=== PATIENT | female | born 1965 | race Two or more races ===

== ENCOUNTER 2024-12-15 19:34 | Emergency (ER) | payer MEDICARE, MEDICAID, SELFPAY ==
[2024-12-15 20:30] VITALS: BP 126/77; PULSE 109; RESP 19; TEMP 37.1; O2SAT 97
--- NOTE | 2024-12-15 20:56 | XR_ITS ---
Examination:Right hip AP, lateral, AP pelvis 3 views Technique: Hip AP lateral, AP pelvis, 3 views Exam date and time:December 15, 2024, 2058 hrs. Indications: Patient fell today with into the right on the right hip pain. Findings: No right hip fracture or dislocation Greater trochanteric bursitis right hip The density overlies left hip. Left hip bones of the pelvis intact Impression: No hip or pelvic fracture..
--- NOTE | 2024-12-15 20:56 | XR_ITS ---
Examination: CT bilateral hips, without contrast. 2-D sagittal reconstructions. 2-D coronal reconstructions. 3-D reconstructions. Date and time of exam:December 15, 2024, 2127 hrs. Indications: Patient fell 9 days ago with injury to both hips, bilateral hip pain CTDI: vol (mGy):4.85 DLP: (mGycm):189 Technique: Multiple 1.25 mm axial sections of the bilateral hips without intravenous contrast have been obtained. 2-D sagittal and coronal reconstructions have been obtained. 3-D reconstructions have been obtained. Low dose protocols were performed. One or more of the following dose reduction techniques were used; automated exposure control, adjustment of the mA and/or KV according to patient size, use of iterative reconstruction technique. Findings: Sacral segments intact Iliac bones acetabular regions intact Anterior rami demonstrate no fractures No right or left hip fracture or dislocation Greater trochanteric bursitis right hip No pelvic hematoma Bladder intact Impression: No acute hip or pelvic fracture.
--- NOTE | 2024-12-15 21:20 | XR_ITS ---
Examination: CT lumbar spine, without contrast. 2-D sagittal reconstructions. 2-D coronal reconstructions. 3-D reconstructions. Date and time of exam:December 15, 2024, 2130 hrs. Indications: Patient fell 9 days ago with injury to lower back, lower back pain. CTDI: vol (mGy):14.4 DLP: (mGycm): 1. Technique: Multiple 1.25 mm axial sections of the lumbar spine without intravenous contrast have been obtained. 2-D sagittal and coronal reconstructions have been obtained. 3-D reconstructions have been obtained. Low dose protocols were performed. One or more of the following dose reduction techniques were used; automated exposure control, adjustment of the mA and/or KV according to patient size, use of iterative reconstruction technique. Findings: Adequate alignment lumbar vertebral bodies on the lateral view No lumbar vertebral body compression fracture Lumbar pedicles, laminae, transverse and posterior spinous processes appear intact L5-S1 4 mm central lumbar disc bulge contiguous with the right and left S1 nerve roots and extending to the left foramen producing mild left L5 ganglionic compression More cephalad levels unremarkable Impression: No acute lumbar fracture L5-S1 4 mm central lumbar disc bulge contiguous with the right and left S1 nerve roots and extending to the left foramen producing mild left L5 ganglionic compression MRI lumbar spine without contrast follow-up, elective, would best assess acquired soft tissue spinal stenosis
[2024-12-15] MEDS: FAMOTIDINE 20 MG TABLET 40 MG PO (22:39)
[2024-12-15] MEDS: MG HYD/AL HYD/SIME (Maalox Reg) SUSP 30 ML UDC PO (22:40)
[2024-12-15] MEDS: KETOROLAC INJ 60 MG/2 ML VIAL IM (22:41)
--- NOTE | 2024-12-15 23:01 | PD.EDHIP ---
Lower Extremity Injury RME/HPI General Chief Complaint: Hip Injury/Pain Stated Complaint: RIGHT HIP PAIN RADIATING TO LEG Time Seen by Provider: 12/15/24 20:55 Arrival date/time: 12/15/24 19:34 59F with no significant PMH presents to ED with 1 week of gradually worsening R hip pain after patient fell. Pain goes down to toes. Initially no pain. Limitations: no limitations Related Data Home Medications ?Medication ?Instructions ?Recorded ?Confirmed HYDROCODONE BIT/ACETAMINOPHEN 1 tab PO Q4-6HRPRN PRN P ##0 03/05/13 (HYDROCODON-ACETAMINOPHN 10-300) Allergies Allergy/AdvReac Type Severity Reaction Status Date / Time No Known Allergies Allergy Unverified 12/15/24 20:58 Review of Systems Review of Systems Systems Reviewed: All systems reviewed, normal except as documented Constitutional Constitutional: Reports system reviewed and no additional complaints, except as documented, Denies fever(s) and Denies headache(s) ENT Ears, Nose, Mouth, and Throat: Denies disequilibrium and Denies headache(s) Cardiovascular Cardiovascular: Reports system reviewed and no additional complaints, except as documented, Denies chest pain and Denies dyspnea Respiratory Respiratory: Reports system reviewed and no additional complaints, except as documented, Denies cough and Denies dyspnea Gastrointestinal Gastrointestinal: Reports system reviewed and no additional complaints, except as documented, Denies abdominal pain, Denies nausea and Denies vomiting Musculoskeletal Musculoskeletal: Reports as per HPI, Reports arthralgias and Reports radiating pain into limb Neurologic Neurologic: Reports system reviewed and no additional complaints, except as documented, Denies confusion, Denies disequilibrium and Denies headache(s) Psychiatric Psychiatric: Denies confusion Past Medical History Social History SMOKING STATUS: Current every day smoker ED Exam General Limitations: Present no limitations General appearance: Present alert and in no apparent distress Head Head exam: Present atraumatic Neck Neck exam: Present normal inspection, full ROM and trachea midline Chest Chest inspection: Present normal inspection and symmetric chest wall rise Expanded Lower Extremity Exam Hip/Pelvis exam: Present tenderness (R) Psychiatric Psychiatric exam: Present normal affect and normal mood Skin Skin exam: Present warm, dry, intact and normal color Course Quality Measures none Orders Category Date Time Status CT hip BI wo con Stat Exams 12/15/24 20:[address] lumbar spine wo con Stat Exams 12/15/24 21:20 Completed XR hip RT w pelvis 2-3V Stat Exams 12/15/24 20:56 Completed Famotidine [Pepcid] Med 12/15/24 22:11 Discontinued 40 mg PO X1 ONE Ketorolac Inj [Toradol Inj] Med 12/15/24 22:11 Discontinued 60 mg IM X1 ONE mg Hyd/Al Hyd/Calvin Susp [Maalox Susp] Med 12/15/24 22:11 Discontinued 30 ml PO X1 ONE oxyCODONE/APAP 5/325 [Percocet 5/325] Med 12/15/24 20:56 Discontinued 1 tab PO X1 ONE Vital Signs Vital signs: Vital Signs Temperature 98.7 F 12/15/24 20:30 Pulse Rate 109 H 12/15/24 20:30 Respiratory Rate 19 12/15/24 20:30 Blood Pressure 126/77 12/15/24 20:30 Pulse Oximetry (%) 97 12/15/24 20:30 Oxygen Delivery Method Room Air 12/15/24 20:30 O2 at 97% on RA and WNLs Extremity Injury, Lower MDM Narrative MDM Narrative:: 59F with no significant PMH presents to ED with 1 week of gradually worsening R hip pain after patient fell. Pain goes down to toes. Initially no pain. Physical exam reveals some hip tenderness. ROM limited. Patient is afebrile, calm, and alert. Hip XR and CT confirm bursitis. CT lumbar shows some nerve pinching, but patient denies bowel/bladder incontinence and paresthesia. Therefore, bursitis more likely cause of symptoms versus neurological impingment. The inflammation of former may also be triggering sciatica. Counseled can return in AM for MRI of back. Meds and genetic counselor given. Patient data External records reviewed:: [facility] previous records Clinical information provided by:: patient Social determinants that could affect healthcare access:: none Patient has the following chronic illnesses:: none How is presenting disease/condition affected by chronic disease/condition?: no chronic disease Evaluation data The following diagnostics were reviewed and interpreted by me:: radiology exam(s) Lab and/or radiology exams considered but not ordered:: ordered Interpretation Summary: above Medications / Prescriptions Medications or Prescriptions considered but not ordered:: ordered Medication administrations:: Medication Administration History Discontinued Medications Al Hydrox/Mg Hydrox/Simethicone (Mg Hyd/Al Hyd/Calvin (Maalox Reg) Susp 30 Ml Udc) 30 ml PO X1 ONE Stop: 12/15/24 22:12 Last Admin: 12/15/24 22:40 Dose: 30 ml Documented By: CVL Famotidine (Famotidine 20 Mg Tablet) 40 mg PO X1 ONE Stop: 12/15/24 22:12 Last Admin: 12/15/24 22:39 Dose: 40 mg Documented By: CVL Ketorolac Tromethamine (Ketorolac Inj 60 Mg/2 Ml Vial) 60 mg IM X1 ONE Stop: 12/15/24 22:12 Last Admin: 12/15/24 22:41 Dose: 60 mg Documented By: CVL Oxycodone/Acetaminophen (Oxycodone/Apap 5/325 Tablet) 1 tab PO X1 ONE Stop: 12/15/24 20:57 Last Admin: 12/15/24 21:13 Dose: 1 tab Documented By: CVL above Consultations Consultation(s) initiated? (list below): No Diagnosis Extremity Injury, Lower Differential Diagnosis: ankle sprain and strain, acute internal derangement of knee, fracture of femur, fracture of hip, puncture wound of foot, fracture of toe, ankle fracture and other (bursitis and low back pain) Most likely diagnosis given after review of the tests above:: bursitis and low back pain Admission Indicated Admission indicated?: not indicated Admission Request Was there a request for admission?: No Disposition Plan Disposition Plan: Discharge Discharge Attestation Discharge Attestation: The patient and all family members were given an opportunity to ask questions and understood the discharge instructions. Discharge instructions specifically effects, indications for sooner follow up or return to the emergency department, and the expected course of current diagnosis. Patient condition: Stable Discharge Plan Plan Patient Disposition: HOME (Self Care) Discharge Disposition comment: Stable Prescriptions/Referrals Prescriptions/Med Rec: No Action HYDROCODONE BIT/ACETAMINOPHEN (HYDROCODON-ACETAMINOPHN 10-300) 1 EACH tablet 1 tab PO Q4-6HRPRN PRN (Reason: P) Qty: 0 Referrals: No Primary/Family,Physician [Primary Care Provider] - In 1 week Problem List Clinical Impression: Bursitis Patient/Caregiver Discharge Instructions Education Materials: What Is Bursitis?, ED Bursitis Additional Instructions: Please follow-up with PCP within 24-48 hours and return immediately if symptoms worsen. If problem persists, recommend outpatient PT and/or MRI follow-up. In the meantime, rest, use ice/heat, and/or compression. Can return in AM for MRI of back. Print Language: [place] Stand Alone Forms: Patient Portal Info Letter PA/FIRE AND EXPLOSION INVESTIGATOR Supervising Physician PA/FIRE AND EXPLOSION INVESTIGATOR Supervising Physician: Dr. Bond
[2024-12-15 23:45] VITALS: RESP 16
== END 2024-12-15 23:45 | disposition home or self-care (01) ==
PROVIDERS: Emergency Provider Emergency Medicine
DX: M70.71 Other bursitis of hip, right hip (principal); F17.210 Nicotine dependence, cigarettes, uncomplicated
CPT/HCPCS: 72131; 73502; 73700; 96372; 99284; J1885; A9270